=== PATIENT | female | born 1960 | race Two or more races ===

== ENCOUNTER 2022-06-10 16:56 | Inpatient (IN) | payer MEDICAID ==
[~2022-06-10] VITALS: Ht 157.5 cm; Wt 42.2 kg
--- NOTE | 2022-06-10 17:06 | NUR ---
PATIENT UNABLE TO SIGN CONSENT FORM FOR PICC INSERTION. PICC INSERTION MEDICALLY NECESSARY PER MD.
--- NOTE | 2022-06-10 17:06 | NUR ---
BIBA FOR PICC INSERTION, PATIENT NON-VERBAL Addendum: 06/10/22 at 1706 by MARTIN PATIENT VERBAL BUT NON-INTELLIGIBLE
--- NOTE | 2022-06-10 17:10 | NUR ---
RN AT BEDSIDE FOR PICC INSERTION
--- NOTE | 2022-06-10 17:25 | NUR ---
XRAY AT BEDSIDE
[2022-06-10 17:42] LABS: BASOPHILS % (AUTO) 0.4 % (0.0-2.0); EOSINOPHILS % (AUTO) 0.2 % (0.0-6.0); HEMATOCRIT 36 % (33-45); HEMOGLOBIN 12.4 g/dL (11.5-14.8); LYMPHOCYTES # (AUTO) 2.4 K/uL (0.8-4.8); MEAN CORPUSCULAR HGB CONC 34 g/dl (31.0-36.0); MEAN CORPUSCULAR VOLUME 83 fL (82-100); MONOCYTES # (AUTO) 0.7 K/uL (0.1-1.30); NEUTROPHILS # (AUTO) 7.9 K/uL (1.8-8.9); NEUTROPHILS % (AUTO) 71.4 % (43.0-81.0); PLATELET COUNT (AUTO) 256 K/uL (150-450); RED BLOOD CELL COUNT(AUTO) 4.38 MIL/uL (4.0-5.2); WHITE BLOOD COUNT (AUTO) 11.1 K/uL (4.3-11.0)
[2022-06-10 18:13] LABS: CARBON DIOXIDE 26 mmol/L (21-32); CHLORIDE 100 mmol/L (98-107); CREATININE 1.1 mg/dL (0.6-1.3); GLUCOSE 121 mg/dL (74-106); POTASSIUM 4.2 mmol/L (3.5-5.1); SODIUM SERUM 138 mmol/L (136-145); UREA NITROGEN, BLOOD 27 mg/dL (7-18)
[2022-06-10 18:19] LABS: ALANINE AMINOTRANSFERASE 41 U/L (12-78); ALBUMIN 3.8 g/dL (3.4-5.0); ALKALINE PHOSPHATASE 83 U/L (46-116); ASPARTATE AMINOTRANSFERASE 36 U/L (15-37); BILIRUBIN,DIRECT 0.3 mg/dL (0.0-0.2); BILIRUBIN,TOTAL 1.1 mg/dL (0.2-1.0); TOTAL PROTEIN, SERUM 7.8 g/dL (6.4-8.2)
[2022-06-10] MEDS ORDERED: IV NS 0.9% 1,000 ML IV ONE ×2 (19:00→21:30)
[2022-06-10] MEDS ORDERED: PANT40VI IV (19:15)
[2022-06-10] MEDS ORDERED: BISA10SU11 RC (19:15)
[2022-06-10] MEDS ORDERED: INSU100V42 SQ (19:15)
[2022-06-10] MEDS ORDERED: MIRT7.5T10 PO (19:15)
[2022-06-10] MEDS ORDERED: ENOX30DI SQ (19:15)
[2022-06-10] MEDS ORDERED: THIA100V2 IV (19:15)
[2022-06-10] MEDS ORDERED: ACET-868 PO (19:15)
[2022-06-10] MEDS ORDERED: TPN ADD IV (19:17)
--- NOTE | 2022-06-10 19:17 | NUR ---
MOVE SHEET SUBMITTED.
--- NOTE | 2022-06-10 19:20 | NUR ---
COVID SWAB OBTAINED
[2022-06-10] MEDS ORDERED: MORPHINE SULFATE INJ 4 MG/ML DISP.SYRIN ONE (19:21)
[2022-06-10] MEDS ORDERED: MORPHINE SULFATE INJ 2 MG/ML DISP.SYRIN IV ONE (19:30)
--- NOTE | 2022-06-10 19:31 | NUR ---
Morphine not given to patient due to patient stating she has a morphine allergy. Medication wasted and witnessed by GISELLA Mcguire.
--- NOTE | 2022-06-10 21:23 | NUR ---
DR NORRIS ON PHONE WITH DR MAHMOOD
[2022-06-10] MEDS ORDERED: BISACODYL SUPP (10 MG) 10 MG/SUPP.RECT SUPP.RECT RC PRN (22:00)
[2022-06-10] MEDS ORDERED: Medication Not On Formulary EA (Amino Acids 4.25%/D10w (Tpn Additives) 1 EA) IV SCH (22:00)
[2022-06-10] MEDS ORDERED: ACETAMINOPHEN 325 MG TABLET PO PRN (22:00)
[2022-06-10] MEDS: MIRTAZAPINE 15 MG TABLET PO SCH (22:32)
--- NOTE | 2022-06-10 22:37 | NUR ---
REPORT GIVEN TO MATT
--- NOTE | 2022-06-10 23:15 | NUR ---
pt transferred, NAD.
--- NOTE | 2022-06-10 23:40 | NUR ---
MICA INSPECTOR ADMITTING NOTE PATIENT WAS TRANSFERRED TO 3W 311-2 WITH PROJECT MANAGER INDUSTRIAL AT 2320H, PATIENT IS A/O X 2-3, CONFUSED; STABLE ON ROOM AIR, BREATHING EVENLY AND NO DISTRESS NOTED; WITH LATOYA PICC LINE; WITH MARRERO CATHETER IN PLACE DRAINING TO YELLOW COLORED URINE; HOOKED TO MOLD CONSTRUCTION SUPERVISOR; ASSESSED SKIN AND NOTED BILATERAL FEET DRYNESS; VITAL SIGNS TAKEN; PATIENT ORIENTED TO STAFF AND ROOM; SAFETY MEASURES IMPLEMENTED, BED IN LOW AND LOCKED POSITION, SIDE RAILS UP X 4, CALL LIGHT WITHIN REACH; WILL CONTINUE TO MONITOR THROUGHOUT SHIFT
[2022-06-11] VITALS: BP 122/91
[2022-06-11] MEDS: MIRTAZAPINE 15 MG TABLET PO SCH ×2 (00:10→22:54)
--- NOTE | 2022-06-11 00:20 | NUR ---
SIGNS AND DISPLAYS SALES REPRESENTATIVE NOTE PATIENT REFUSED TO TAKE MIRTAZAPINE DESPITE EXPLANATION. WILL CONTINUE TO MONITOR
[2022-06-11 04:00] VITALS: BP 105/72
[2022-06-11 06:15] LABS: BILIRUBIN,URINE NEGATIVE (NEGATIVE); COLOR,URINE YELLOW (YELLOW); LEUKOCYTE ESTERASE ,URINE 1+ (NEGATIVE); NITRITE, URINE NEGATIVE (NEGATIVE); PROTEIN,URINE NEGATIVE (NEGATIVE); UGLUCOSE NEGATIVE (NEGATIVE); UROBILINOGEN,URINE 0.2 EU/dL (0.2)
[2022-06-11 06:37] LABS: BACTERIA,URINE Many /HPF (None Seen); SQUAMOUS EPITHELIAL CELL,UR Few /HPF (None Seen); WBC,URINE 21-50 /HPF (0-3)
--- NOTE | 2022-06-11 06:50 | NUR ---
TEACHER ASST CLOSING NOTE PATIENT IS A/O X 2-3, CONFUSED; STABLE ON ROOM AIR, BREATHING EVENLY AND NO DISTRESS NOTED; WITH LATOYA PICC LINE, FLUSHES WELL; WITH MARRERO CATHETER IN PLACE DRAINING TO YELLOW COLORED URINE APPROXIMATELY 650ML; HOOKED TO BAGGING SALVAGER CURRENTLY READING SINUS TACHYCARDIA; ASSESSED SKIN AND NOTED BILATERAL FEET DRYNESS; VITAL SIGNS TAKEN; PATIENT ORIENTED TO STAFF AND ROOM; SAFETY MEASURES IMPLEMENTED, BED IN LOW AND LOCKED POSITION, SIDE RAILS UP X 4, CALL LIGHT WITHIN REACH;
--- NOTE | 2022-06-11 07:30 | NUR ---
IMPORT/EXPORT FREIGHT FORWARDER NOTES PT IN BED, AWAKE, ALERT TO SELF, VERBALLY RESPONSIVE, WITH CRYING EPISODES, DENIES PAIN, NOT IN DISTRESS, CALL LIGHT WITHIN REACH, KEPT WARM AND COMFORTABLE IN BED.
[2022-06-11 08:00] VITALS: BP 126/76
[2022-06-11 08:27] LABS: CALCIUM, SERUM 9.6 mg/dL (8.5-10.1); CREATININE 0.7 mg/dL (0.6-1.3); MAGNESIUM 2.3 mg/dL (1.8-2.4); PHOSPHORUS 3.7 mg/dL (2.5-4.9); POTASSIUM 3.8 mmol/L (3.5-5.1)
[2022-06-11] MEDS: PANTOPRAZOLE 40 MG VIAL IV SCH (08:53)
[2022-06-11] MEDS: ENOXAPARIN SODIUM 30 MG/0.3 ML DISP.SYRIN SQ SCH (08:54)
[2022-06-11] MEDS ORDERED: Thiamine 100 MG/ML VIAL IV SCH (09:00)
[2022-06-11] MEDS: CEFTRIAXONE 1 G in IV D5W 50 ML IV SCH (09:28)
[2022-06-11] MEDS ORDERED: TPN/PPN PER PHARMACY IV PRN (09:30)
[2022-06-11] MEDS ORDERED: TPN BAG #1 IV SCH ×3 (10:00)
[2022-06-11] MEDS: Thiamine 100 MG in IV D5W 50 ML IV SCH (10:23)
[2022-06-11] MEDS ORDERED: DEXTROSE 50%-WATER 50 ML DISP.SYRIN IV PRN (10:30)
[2022-06-11] MEDS: BLOOD SUGAR DIAGNOSTIC 1 EACH STRIP IN SCH ×2 (11:35→17:48)
[2022-06-11 16:00] VITALS: BP 122/76
--- NOTE | 2022-06-11 18:06 | NUR ---
PERFORATOR TYPIST NOTES PT IN BED, QUIETLY RESTING, ALERT TO SELF, WITH OCCASIONAL CRYING EPISODES, TPN INFUSING WELL, ORDER OBTAINED FROM DR. KEYS FOR PSYCH CONSULT, F/C DRAINING WELL WITH CLEAR, YELLOW URINE, KEPT WARM AND COMFORTABLE IN BED.
--- NOTE | 2022-06-11 19:30 | NUR ---
TEACHER EDUCATION DIRECTOR OPENING NOTE RECEIVED PT SLEEPING IN BED. PATIENT IS A/O X 2-3, CONFUSED; STABLE ON ROOM AIR, BREATHING EVENLY, NO RESPIRATORY DISTRESS NOTED. RIGHT UA PICC LINE, FLUSHING WELL. MARRERO CATHETER IN PLACE DRAINING YELLOW COLORED URINE. PT ON PHARMACY OPERATIONS MANAGER CURRENTLY READING SINUS TACHYCARDIA. SAFETY MEASURES IMPLEMENTED: BED IN LOW AND LOCKED POSITION, SIDE RAILS UP X 3, CALL LIGHT WITHIN REACH. WILL CONTINUE TO MONITOR PT.
[2022-06-11 20:00] VITALS: BP 109/74
[2022-06-11] MEDS: TPN BAG #2 IV SCH ×2 (22:57)
[2022-06-12] VITALS: BP 118/68
[2022-06-12] MEDS: BLOOD SUGAR DIAGNOSTIC 1 EACH STRIP IN SCH ×4 (00:03→18:05)
[2022-06-12] MEDS: INSULIN REGULAR, HUMAN 100 UNIT/ML 3 ML VIAL SQ PRN ×2 (00:04→06:53)
--- NOTE | 2022-06-12 00:40 | NUR ---
GISELLA NOTES- REMERON PATIENT WAS ABLE TO EAT PUDDING AND FINISHED IT. SHE WAS ABLE TO TAKE REMERON PO. PATIENT IS CALMER AND STOPPED CRYING AFTER GIVING THE ATIVAN 0.5MG IV PRN. WILL CONTINUE TO MONITOR THE PATIENT. Addendum: 06/13/22 at 0158 by MING GOSS RN WRONG DATE
[2022-06-12 04:00] VITALS: BP 112/71
--- NOTE | 2022-06-12 06:48 | NUR ---
STOCK LAYER CLOSING NOTE LEFT PT AWAKE, RESTING IN BED. PATIENT IS A/O X 2-3, CONFUSED; ON ROOM AIR. NO RESPIRATORY DISTRESS NOTED. RIGHT UA PICC LINE, FLUSHING WELL. MARRERO CATHETER IN PLACE DRAINING YELLOW COLORED URINE. PT ON DRAG SEINER CURRENTLY READING SINUS TACHYCARDIA. ALL MEDS ADMINISTERED IN TIMELY MANNER. ALL NEEDS ATTENDED. SAFETY MEASURES IMPLEMENTED: BED IN LOW AND LOCKED POSITION, SIDE RAILS UP X 3, CALL LIGHT WITHIN REACH. WILL ENDORSE PT TO MORNING SHIFT NURSE FOR STEVEN.
[2022-06-12 07:00] VITALS: BP 138/77
--- NOTE | 2022-06-12 07:00 | NUR ---
CUSHION STUFFER OPENING NOTES RECEIVED PATIENT SLEEPING IN BED, A/Ox1-2 EPISODES OF CONFUSION. ON ROOM AIR, NO S/S OF RESPIRATORY DISTRESS. PATIENT ON TELE MONITORING SHOWING SINUS RHYTHM HR 94. NO S/S OF CARDIAC DISTRESS OR DISCOMFORT. IV ACCESS LATOYA PICC LINE, RUNNING TPN, INTACT AND PATENT. PATIENT INCONTINENT, HAS FC DRAINING YELLOW URINE AT THIS TIME. SKIN INTACT. NO S/S OF PAIN OR DISCOMFORT NOTED. SAFETY MEASURES IN PLACE: BED LOCKED AND IN LOWEST POSITION, HOB ELEVATED, CALL LIGHT WITHIN REACH, SIDE RAILS UPx3. WILL CONTINUE TO MONITOR.
[2022-06-12 07:20] LABS: CALCIUM, SERUM 8.9 mg/dL (8.5-10.1); CREATININE 0.7 mg/dL (0.6-1.3); PHOSPHORUS 2.2 mg/dL (2.5-4.9); POTASSIUM 3.3 mmol/L (3.5-5.1)
[2022-06-12] MEDS: ENOXAPARIN SODIUM 30 MG/0.3 ML DISP.SYRIN SQ SCH (09:00)
[2022-06-12] MEDS: PANTOPRAZOLE 40 MG VIAL IV SCH (09:13)
[2022-06-12] MEDS: CEFTRIAXONE 1 G in IV D5W 50 ML IV SCH (09:13)
[2022-06-12] MEDS: POTASSIUM PHOSPHATE MM 7.5 MMOL in IV NS 0.9% 100 ML IV SCH ×2 (10:53→14:43)
[2022-06-12] MEDS ORDERED: OLANZAPINE ZYDIS 5 MG TAB.RAPDIS PO PRN (11:30)
[2022-06-12 12:00] VITALS: BP 132/93
[2022-06-12] MEDS: TPN BAG #2 IV SCH ×2 (12:00)
[2022-06-12] MEDS ORDERED: TPN BAG #3 IV SCH ×4 (12:30)
--- NOTE | 2022-06-12 12:47 | NUR ---
RN NOTES PATIENT HAS HAD FEW EPISODES OF CRYING SOFTLY TO HERSELF. SEEN BY DR. VENEGAS, GIVEN NEW ORDERS FOR ZYPREXA PRN. PATIENT IS CONSOLABLE AT TIMES. WILL CONTINUE TO MONITOR.
[2022-06-12] MEDS: Thiamine 100 MG in IV D5W 50 ML IV SCH (13:55)
--- NOTE | 2022-06-12 15:07 | NUR ---
RN NOTES PATIENT BECAME INCONSOLABLE ATTEMPTED TO GIVE ZYPREXA 5 MG TO CALM. HOWEVER PATIENT SPIT MEDICATION OUT. UNABLE TO RETURN MEDICATION TO [facility]. CHARGE NURSE AWARE. MARRERO REMOVED PATIENT WAS TUGGING AND PULLING AT IT, REMOVED AN ATTEMPT TO CALM. WILL CONTINUE TO MONITOR.
[2022-06-12 16:00] VITALS: BP 133/87
--- NOTE | 2022-06-12 18:47 | NUR ---
TRIBAL JUDGE CLOSING NOTES PATIENT SLEEPING IN BED, A/Ox1-2 EPISODES OF CONFUSION. STABLE ON ROOM AIR, NO S/S OF RESPIRATORY DISTRESS. PATIENT ON TELE MONITORING SHOWING SINUS TACH HR 120. NO S/S OF CARDIAC DISTRESS OR DISCOMFORT. IV ACCESS LATOYA PICC LINE, RUNNING TPN, INTACT AND PATENT. PATIENT INCONTINENT USES DIAPER. SKIN INTACT. NO S/S OF PAIN OR DISCOMFORT NOTED. SAFETY MEASURES MAINTAINED: BED LOCKED AND IN LOWEST POSITION, HOB ELEVATED, CALL LIGHT WITHIN REACH, SIDE RAILS UPx3. WILL ENDORSE TO NEXT SHIFT ANY STEVEN.
--- NOTE | 2022-06-12 19:30 | NUR ---
SUPERVISOR LEAF SPRING REPAIR OPENING NOTES RECEIVED PATIENT IN BED CRYING. A/O x 1-2 EPISODES OF CONFUSION. STABLE ON ROOM AIR, BREATHING EVEN AND UNLABORED, NO S/S OF RESPIRATORY DISTRESS. PATIENT ON TELE MONITORING SHOWING SINUS TACH HR 120. NO S/S OF CARDIAC DISTRESS. IV ACCESS LATOYA PICC LINE, RUNNING TPN, INTACT AND PATENT, TOLERATING WELL. PATIENT INCONTINENT USES DIAPER. SKIN IS INTACT. SAFETY MEASURES MAINTAINED: BED LOCKED AND IN LOWEST POSITION, HOB ELEVATED, CALL LIGHT WITHIN REACH, SIDE RAILS UP x 3. WILL CONTINUE WITH THE PLAN OF CARE.
[2022-06-12] MEDS ORDERED: Magnesium 1GM/D5W 100ML PREMIX 100 ML IV SCH (20:00)
[2022-06-12 20:35] VITALS: BP 146/85
[2022-06-12] MEDS ORDERED: POTASSIUM CL. PREMIX PERIPHER. 50 ML IV SCH (21:00)
[2022-06-12] MEDS: MIRTAZAPINE 15 MG TABLET PO SCH (22:00)
[2022-06-12] MEDS ORDERED: LORAZEPAM INJ 2 MG/ML VIAL IV PRN (23:30)
--- NOTE | 2022-06-12 23:40 | NUR ---
RN NOTES- ATIVAN PATIENT HAS BEEN CRYING ALL DAY, RESTLESS AND NOT TAKING HER ORAL MEDICATIONS. INFORMED DR. MAHMOOD. ORDERED ATIVAN IV 0.5MG PRN. WILL CONTINUE TO MONITOR THE PATIENT.
[2022-06-13] MEDS: BLOOD SUGAR DIAGNOSTIC 1 EACH STRIP IN SCH ×4 (00:07→17:45)
[2022-06-13 00:19] VITALS: BP 110/79
[2022-06-13] MEDS: MIRTAZAPINE 15 MG TABLET PO SCH (00:35)
--- NOTE | 2022-06-13 00:40 | NUR ---
RN NOTES- REMERON PATIENT WAS ABLE TO EAT PUDDING AND FINISHED IT. SHE WAS ABLE TO TAKE REMERON PO. PATIENT IS CALMER AND STOPPED CRYING AFTER GIVING THE ATIVAN 0.5MG IV PRN. WILL CONTINUE TO MONITOR THE PATIENT.
[2022-06-13] MEDS ORDERED: [UNRECOGNIZED DRUG - NUTRITION] IV SCH ×2 (01:06)
[2022-06-13 04:39] VITALS: BP 125/85
[2022-06-13 07:59] LABS: CALCIUM, SERUM 9.4 mg/dL (8.5-10.1); CREATININE 0.7 mg/dL (0.6-1.3); MAGNESIUM 2.3 mg/dL (1.8-2.4); PHOSPHORUS 2.1 mg/dL (2.5-4.9); POTASSIUM 2.9 mmol/L (3.5-5.1)
[2022-06-13 08:00] VITALS: BP 109/85
--- NOTE | 2022-06-13 08:08 | NUR ---
PRIVATE MORTGAGE BANKER SAFE CLOSING NOTES PATIENT LYING IN BED COMFORTABLY. A/O x 1-2 EPISODES OF CONFUSION. STABLE ON ROOM AIR, BREATHING EVEN AND UNLABORED, NO S/S OF RESPIRATORY DISTRESS. PATIENT ON TELE MONITORING SHOWING SINUS TACH HR 120. NO S/S OF CARDIAC DISTRESS. IV ACCESS LATOYA PICC LINE, RUNNING TPN 90ML/HR, INTACT AND PATENT, TOLERATING WELL. PATIENT INCONTINENT USES DIAPER. SKIN IS INTACT. PATIENT ON BILATERAL SOFT RESTRAINT. SAFETY MEASURES MAINTAINED: BED LOCKED AND IN LOWEST POSITION, HOB ELEVATED, CALL LIGHT WITHIN REACH, SIDE RAILS UP x 3. WILL ENDORSE TO THE NEXT SHIFT.
[2022-06-13] MEDS: CEFTRIAXONE 1 G in IV D5W 50 ML IV SCH (08:31)
[2022-06-13] MEDS: ENOXAPARIN SODIUM 30 MG/0.3 ML DISP.SYRIN SQ SCH (08:33)
[2022-06-13] MEDS ORDERED: THIAMINE HCL 100 MG TABLET PO SCH (09:00)
[2022-06-13] MEDS ORDERED: PANTOPRAZOLE 40 MG TABLET.DR PO SCH (09:00)
[2022-06-13] MEDS: POTASSIUM CL. PREMIX PERIPHER. 50 ML IV SCH ×6 (09:57→15:01)
--- NOTE | 2022-06-13 10:52 | NUR ---
INDUSTRIAL SOCIOLOGIST OPENING NOTE RECEIVED PATIENT IN BED. A/O x 1-2 WITH EPISODES OF CONFUSION. STABLE ON ROOM AIR, BREATHING EVEN AND NON LABORED, NO S/S OF RESPIRATORY DISTRESS. PATIENT ON EXTERNAL TELE MONITORING SHOWING SR, HR 92. NO S/S OF CARDIAC DISTRESS. IV ACCESS LATOYA PICC LINE, RUNNING TPN @90ML/HR INTACT AND PATENT, TOLERATING WELL. PT HAS SOFT BILATERAL WRIST RESTRAINTS, CIRCULATION IS GOOD. SAFETY MEASURES MAINTAINED: BED LOCKED AND IN LOWEST POSITION, HOB ELEVATED, CALL LIGHT WITHIN REACH, SIDE RAILS UP x 3. WILL CONTINUE WITH THE PLAN OF CARE.
[2022-06-13] MEDS ORDERED: IV NS 0.9% 500 ML IV ONE (11:30)
[2022-06-13] MEDS ORDERED: CEFT1FRO2 IV (11:31)
[2022-06-13 12:00] VITALS: BP 126/77
[2022-06-13] MEDS ORDERED: K PHOS NEUTRAL 250 MG TABLET PO ONE (12:00)
[2022-06-13] MEDS ORDERED: TPN BAG #5 IV SCH ×4 (13:36)
--- NOTE | 2022-06-13 15:30 | NUR ---
RN NOTE CALLED [facility] , GAVE REPORT TO TIFFANY BUTTS.
[2022-06-13 16:00] VITALS: BP 103/71
--- NOTE | 2022-06-13 18:25 | NUR ---
MUSKRAT TRAPPER NOTE PATIENT DISCHARGE IN STABLE MEDICAL CONDITION. A/OX2. VS TAKEN, STABLE AND RECORDED. RIGHT UPPER ARM PICC LINE, INTACT AND PATENT. NAME ARM BAND REMOVED. EXTERNAL SALES DEVELOPMENT EXECUTIVE REMOVED AND RETURNED TO TELE DESK. SKIN ASSESSMENT DONE. ALL BELONGINGS CHECKED AND BELONGING LIST SIGNED. HEALTH TEACHING AND DISCHARGE INSTRUCTION GIVEN TO [facility] AT FACILITY AND VERBALIZED UNDERSTANDING. REPORT GIVEN TO TIFFANY BUTTS AT [facility]. PATIENT LEFT UNIT VIA AMBULANCE WITH NO SIGN OF DISTRESS. ACCOMPANIED BY ADJUTANT GENERAL. CHARGE NURSE AWARE OF DISCHARGE.
[2022-06-13] MEDS ORDERED: MUPIROCIN OINT 2% 22 GM TUBE NS SCH (21:00)
[2022-06-14] MEDS ORDERED: TPN BAG #6 IV SCH ×2 (02:12)
[2022-06-14] MEDS ORDERED: TPN BAG #7 IV SCH ×4 (12:12)
== END 2022-06-13 18:30 | DRG 206 ==
LOC: ER 17:03 → TELE 22:23
PROVIDERS: ADMIT Internal Medicine; ATTEND Nurse Practitioner Acute Care
PROC: 02HV33Z Insertion of Infusion Device into Superior Vena Cava, Percutaneous Approach (ICD-10-PCS; principal; 2022-06-10)
PROC: B548ZZA Ultrasonography of Superior Vena Cava, Guidance (ICD-10-PCS; 2022-06-10)
DX: T82.514A Breakdown (mechanical) of infusion catheter, initial encounter (principal); N17.0 Acute kidney failure with tubular necrosis; G93.41 Metabolic encephalopathy; E44.0 Moderate protein-calorie malnutrition; R64 Cachexia; Y84.8 Other medical procedures as the cause of abnormal reaction of the patient, or of later complication, without mention of misadventure at the time of the procedure; N39.0 Urinary tract infection, site not specified; Z20.822 Contact with and (suspected) exposure to COVID-19; J45.909 Unspecified asthma, uncomplicated; R62.7 Adult failure to thrive; F32.A Depression, unspecified; Z88.6 Allergy status to analgesic agent; Z79.01 Long term (current) use of anticoagulants; Z79.4 Long term (current) use of insulin; Z91.018 Allergy to other foods; E86.0 Dehydration; E87.20 Acidosis, unspecified; Y92.199 Unspecified place in other specified residential institution as the place of occurrence of the external cause; F29 Unspecified psychosis not due to a substance or known physiological condition; F03.918 Unspecified dementia, unspecified severity, with other behavioral disturbance
CPT/HCPCS: 36415; 71045-TC; 80048-TC; 80076-TC; 81001; 82962-TC; 83605-TC; 83735-TC; 84100-TC; 84478-TC; 85025-TC; 85730-TC; 87081-TC; 87086-TC; A4223; C9113; C9803; G0378; J0696; J1650; J1815; J2060; J2270; J3411; J3475; J3480; J3490; J7030; J7040; J7050; J7060